=== PATIENT | female | born 1965 | race Caucasian/White ===

== ENCOUNTER 2019-12-20 10:15 | Outpatient (CLI) | payer MEDICARE, MEDICAID, SELFPAY ==
[2019-12-22 17:22] LABS: COVID-19 RT-PCR Result NEGATIVE (Negative)
== END 2019-12-20 10:35 ==
PROVIDERS: PCP Physician Assistant; Visit Provider Physician Assistant Surgical
DX: Z03.818 Encounter for observation for suspected exposure to other biological agents ruled out (principal); Z01.812 Encounter for preprocedural laboratory examination
CPT/HCPCS: U0003